=== PATIENT | female | born 1935 | race Caucasian/White ===

== ENCOUNTER 2017-06-09 14:54 | Inpatient (IN) | payer MEDICARE, MEDICAID ==
[~2017-06-09] VITALS: Ht 149.9 cm; Wt 95.6 kg
[2017-06-09] MEDS ORDERED: XALA2.5OS OU (15:20)
[2017-06-09] MEDS ORDERED: IPRA3AMP4 IH (15:20)
[2017-06-09] MEDS ORDERED: ATOR10TA84 PO (15:20)
[2017-06-09] MEDS ORDERED: RIVA20TA PO (15:20)
[2017-06-09] MEDS ORDERED: FAMO20 PO (15:20)
[2017-06-09] MEDS ORDERED: GABA-531 PO (15:20)
[2017-06-09] MEDS ORDERED: NITR50 PO (15:20)
[2017-06-09] MEDS ORDERED: AMLO-511 PO (15:20)
[2017-06-09] MEDS ORDERED: INSU100V SQ (15:20)
[2017-06-09] MEDS ORDERED: TRAZ-147 PO (15:20)
[2017-06-09] MEDS ORDERED: VALS160T2 PO (15:20)
[2017-06-09] MEDS ORDERED: CARV6 PO (15:20)
[2017-06-09 16:05] LABS: BASOPHILS % (AUTO) 0.1 % (0.0-2.0); EOSINOPHILS % (AUTO) 0.8 % (1.0-6.0); HEMATOCRIT 43.1 % (36-46); HEMOGLOBIN 14.6 g/dL (12.0-16.0); LYMPHOCYTES # (AUTO) 2.2 K/uL (1.0-4.8); LYMPHOCYTES % (AUTO) 13.7 % (22.0-44.0); MEAN CORPUSCULAR HEMOGLOBIN 30.5 pg (26.0-34.0); MEAN CORPUSCULAR HGB CONC 33.8 G/dL (31.0-37.0); MEAN CORPUSCULAR VOLUME 90 fL (80-100); MONOCYTES % (AUTO) 6.5 % (2.0-9.0); NEUTROPHILS # (AUTO) 12.5 K/uL (1.8-7.7); NEUTROPHILS % (AUTO) 78.9 % (40.0-70.0); PLATELET COUNT (AUTO) 137 K/uL (150-450); RED BLOOD CELL COUNT(AUTO) 4.78 MIL/uL (4.00-5.20); RED CELL DISTRIBUTION WIDTH 13.6 % (11.5-14.5); WHITE BLOOD COUNT (AUTO) 15.8 K/uL (4.5-11.0)
[2017-06-09 16:16] LABS: ANION GAP 8 mmol/L (8-16); CALCIUM, TOTAL 8.6 mg/dL (8.8-10.5); CARBON DIOXIDE 27 mmol/L (22-29); CHLORIDE 103 mmol/L (98-107); CREATININE 0.93 mg/dL (0.60-1.30); GLOMERULAR FILTR. RATE CALC 58 mL/min (>60); POTASSIUM 4.2 mmol/L (3.5-5.1); SODIUM SERUM 138 mmol/L (136-145); UREA NITROGEN, BLOOD 22 mg/dL (7-18)
[2017-06-09 16:18] LABS: INR 1.2 (0.9-1.1)
[2017-06-09 16:22] LABS: ALANINE AMINOTRANSFERASE 17 U/L (12-78); ALBUMIN 3.9 g/dL (3.4-5.0); ASPARTATE AMINOTRANSFERASE 16 U/L (15-37); BILIRUBIN,TOTAL 0.5 mg/dL (0.1-1.0); CREATINE KINASE, TOTAL 50 U/L (26-192); TOTAL PROTEIN, SERUM 7.2 g/dL (6.4-8.2)
[2017-06-09] MEDS ORDERED: ACETAMINOPHEN 325 MG TABLET PO ONE (16:30)
[2017-06-09 16:37] LABS: B-TYPE NATRIURETIC PEPTIDE 103 pg/mL (0-100)
[2017-06-09 18:27] LABS: GLUCOSE,POINT OF CARE 127 MG/DL (70-110)
[2017-06-09] MEDS ORDERED: ACETAMINOPHEN 325 MG TABLET PO PRN (18:30)
[2017-06-09] MEDS ORDERED: 0.9% SODIUM CHLORIDE 10 ML SYRINGE IVP PRN (18:30)
[2017-06-09 21:38] LABS: GLUCOSE,POINT OF CARE 149 MG/DL (70-110)
[2017-06-10] VITALS (7 sets, daily range): BP systolic 138–156; BP diastolic 65–108
[2017-06-10] MEDS ORDERED: FAMOTIDINE 20 MG TABLET PO SCH ×2 (00:30→09:00)
[2017-06-10] MEDS ORDERED: NITROGLYCERIN 0.4 MG SUBLINGUAL TABLET #25 SL PRN (00:30)
[2017-06-10] MEDS ORDERED: MORPHINE SULFATE 2 MG/ML SYRINGE IVP PRN (00:30)
[2017-06-10] MEDS ORDERED: NITROGLYCERIN 2% (1 GM=INCH) PACKET TP PRN (00:30)
[2017-06-10] MEDS ORDERED: ASPIRIN 81 MG CHEWABLE TABLET PO ONE (00:30)
[2017-06-10] MEDS ORDERED: RIVAROXABAN 20 MG TABLET PO SCH ×2 (01:00→18:00)
[2017-06-10] MEDS: OXYGEN THERAPY IH SCH ×3 (01:01→20:03)
[2017-06-10 05:53] LABS: BASOPHILS # (AUTO) 0.04 K/uL (0.00-0.20); BASOPHILS % (AUTO) 0.3 % (0.0-2.0); EOSINOPHILS # (AUTO) 0.21 K/uL (0.00-0.70); EOSINOPHILS % (AUTO) 1.55 % (1.0-6.0); HEMATOCRIT 44.2 % (36-46); HEMOGLOBIN 14.9 g/dL (12.0-16.0); LYMPHOCYTES # (AUTO) 1.6 K/uL (1.0-4.8); LYMPHOCYTES % (AUTO) 11.4 % (22.0-44.0); MEAN CORPUSCULAR HEMOGLOBIN 30.1 pg (26.0-34.0); MEAN CORPUSCULAR HGB CONC 33.8 G/dL (31.0-37.0); MEAN CORPUSCULAR VOLUME 89 fL (80-100); MONOCYTES # (AUTO) 0.8 K/uL (0.1-1.0); MONOCYTES % (AUTO) 5.5 % (2.0-9.0); NEUTROPHILS # (AUTO) 11.2 K/uL (1.8-7.7); NEUTROPHILS % (AUTO) 81.3 % (40.0-70.0); PLATELET COUNT (AUTO) 135 K/uL (150-450); RED BLOOD CELL COUNT(AUTO) 4.97 MIL/uL (4.00-5.20); RED CELL DISTRIBUTION WIDTH 13.3 % (11.5-14.5); WHITE BLOOD COUNT (AUTO) 13.8 K/uL (4.5-11.0)
[2017-06-10 06:11] LABS: ALANINE AMINOTRANSFERASE 15 U/L (12-78); ANION GAP 12 mmol/L (8-16); ASPARTATE AMINOTRANSFERASE 14 U/L (15-37); BILIRUBIN,TOTAL 0.7 mg/dL (0.1-1.0); CALCIUM, TOTAL 8.9 mg/dL (8.8-10.5); CARBON DIOXIDE 25 mmol/L (22-29); CHLORIDE 102 mmol/L (98-107); CREATININE 0.76 mg/dL (0.60-1.30); GLOMERULAR FILTR. RATE CALC > 60 mL/min (>60); POTASSIUM 4.3 mmol/L (3.5-5.1); SODIUM SERUM 139 mmol/L (136-145); TOTAL PROTEIN, SERUM 7.4 g/dL (6.4-8.2); UREA NITROGEN, BLOOD 22 mg/dL (7-18)
[2017-06-10] MEDS ORDERED: DEXTROSE 50%-WATER 25 GM/50 ML SYRINGE IVP PRN (07:45)
[2017-06-10] MEDS: ASPIRIN 81 MG CHEWABLE TABLET PO SCH (08:26)
[2017-06-10] MEDS: LATANOPROST 0.005% 2.5 ML OPHTHALMIC SOLUTION OU SCH (08:26)
[2017-06-10] MEDS: CARVEDILOL 6.25 MG TABLET PO SCH (08:26)
[2017-06-10] MEDS: DOCUSATE SODIUM 100 MG CAPSULE PO SCH (08:26)
[2017-06-10] MEDS: AmLODIPine BESYLATE 5 MG TABLET PO SCH (08:27)
[2017-06-10] MEDS: VALSARTAN 160 MG TABLET PO SCH (08:27)
[2017-06-10] MEDS: GABAPENTIN 300 MG CAPSULE PO SCH ×3 (08:27→20:03)
[2017-06-10] MEDS ORDERED: ASPIRIN 81 MG CHEWABLE TABLET PO SCH (09:00)
[2017-06-10] MEDS ORDERED: ATORVASTATIN CALCIUM 10 MG TABLET PO SCH ×2 (09:00)
[2017-06-10] MEDS ORDERED: NITROFURANTOIN/NITROFURAN MAC 100 MG CAPSULE [MACROBID] PO SCH (09:00)
[2017-06-10] MEDS: ACETAMINOPHEN 325 MG TABLET PO PRN ×2 (11:41→20:04)
[2017-06-10 12:43] LABS: GLUCOSE COMMENT 1 Received Meds; GLUCOSE,POINT OF CARE 192 MG/DL (70-110)
[2017-06-10] MEDS: INSULIN ASPART 100 UNITS/ML SQ PRN ×3 (13:32→20:21)
[2017-06-10] MEDS ORDERED: TRAZ150 PO (15:27)
[2017-06-10] MEDS ORDERED: GABA-533 PO (15:27)
[2017-06-10] MEDS ORDERED: ALBUTEROL SULFATE HFA 90 MCG/PUFF 8 GM INHALER IH PRN (15:30)
[2017-06-10] MEDS ORDERED: *NON-FORMULARY MED [ENTER DRUG, DOSE, FREQ IN COMMENTS] CLINICAL ONE ×2 (15:45)
[2017-06-10] MEDS: FLUOROMETHOLONE 0.1% 5 ML OPHTHALMIC SUSPENSION OS SCH ×2 (17:13→20:03)
[2017-06-10 19:38] LABS: GLUCOSE COMMENT 1 Received Meds; GLUCOSE,POINT OF CARE 141 MG/DL (70-110)
[2017-06-10] MEDS: OXYBUTYNIN CHLORIDE 5 MG ER TABLET PO SCH (20:03)
[2017-06-10] MEDS: DABIGATRAN ETEXILATE MESYLATE 150 MG CAPSULE PO SCH (20:03)
[2017-06-10] MEDS: TraZODone HCL 100 MG TABLET PO SCH (20:03)
[2017-06-10 21:23] LABS: ADD UA MICROSCOPIC NO; APPEARANCE,URINE CLEAR (CLEAR); GLUCOSE, URINE (UA) NEGATIVE (NEGATIVE); KETONES,URINE NEGATIVE (NEGATIVE); LEUKOCYTE ESTERASE ,URINE NEGATIVE (NEGATIVE); OCCULT BLOOD,URINE NEGATIVE (NEGATIVE); PROTEIN,URINE POS 1+ (NEGATIVE)
[2017-06-11 01:18] LABS: GLUCOSE COMMENT 1 Received Meds; GLUCOSE,POINT OF CARE 214 MG/DL (70-110)
[2017-06-11 01:18] LABS: GLUCOSE COMMENT 1 Received Meds; GLUCOSE,POINT OF CARE 268 MG/DL (70-110)
[2017-06-11 05:44] VITALS: BP 128/75
[2017-06-11 06:09] LABS: BASOPHILS % (AUTO) 0.1 % (0.0-2.0); EOSINOPHILS % (AUTO) 2.1 % (1.0-6.0); HEMATOCRIT 43.8 % (36-46); LYMPHOCYTES # (AUTO) 2.3 K/uL (1.0-4.8); LYMPHOCYTES % (AUTO) 17.8 % (22.0-44.0); MEAN CORPUSCULAR HEMOGLOBIN 30.6 pg (26.0-34.0); MEAN CORPUSCULAR HGB CONC 34.2 G/dL (31.0-37.0); MEAN CORPUSCULAR VOLUME 89 fL (80-100); MONOCYTES # (AUTO) 0.8 K/uL (0.1-1.0); MONOCYTES % (AUTO) 6.1 % (2.0-9.0); NEUTROPHILS # (AUTO) 9.4 K/uL (1.8-7.7); NEUTROPHILS % (AUTO) 73.9 % (40.0-70.0); PLATELET COUNT (AUTO) 144 K/uL (150-450); RED BLOOD CELL COUNT(AUTO) 4.89 MIL/uL (4.00-5.20); RED CELL DISTRIBUTION WIDTH 13.6 % (11.5-14.5); WHITE BLOOD COUNT (AUTO) 12.8 K/uL (4.5-11.0)
[2017-06-11] MEDS: INSULIN ASPART 100 UNITS/ML SQ PRN ×4 (06:19→20:14)
[2017-06-11 07:05] LABS: ALANINE AMINOTRANSFERASE 17 U/L (12-78); ALBUMIN 3.5 g/dL (3.4-5.0); ANION GAP 9 mmol/L (8-16); ASPARTATE AMINOTRANSFERASE 17 U/L (15-37); BILIRUBIN,TOTAL 1.1 mg/dL (0.1-1.0); CALCIUM, TOTAL 8.7 mg/dL (8.8-10.5); CARBON DIOXIDE 28 mmol/L (22-29); CHLORIDE 105 mmol/L (98-107); CHOL/HDL RATIO 3.4 (3.9-5.7); CREATININE 0.81 mg/dL (0.60-1.30); GLOMERULAR FILTR. RATE CALC > 60 mL/min (>60); POTASSIUM 3.8 mmol/L (3.5-5.1); SODIUM SERUM 142 mmol/L (136-145); TOTAL PROTEIN, SERUM 6.8 g/dL (6.4-8.2); UREA NITROGEN, BLOOD 20 mg/dL (7-18)
[2017-06-11 08:09] VITALS: BP 118/77
[2017-06-11] MEDS: FLUOROMETHOLONE 0.1% 5 ML OPHTHALMIC SUSPENSION OS SCH ×4 (08:18→20:08)
[2017-06-11] MEDS: OXYGEN THERAPY IH SCH ×2 (08:18→20:15)
[2017-06-11] MEDS: LATANOPROST 0.005% 2.5 ML OPHTHALMIC SOLUTION OU SCH (08:19)
[2017-06-11] MEDS: BUMETANIDE 1 MG TABLET PO SCH (08:19)
[2017-06-11] MEDS: ASPIRIN 81 MG CHEWABLE TABLET PO SCH (08:19)
[2017-06-11] MEDS: DOCUSATE SODIUM 100 MG CAPSULE PO SCH (08:20)
[2017-06-11] MEDS: AmLODIPine BESYLATE 5 MG TABLET PO SCH (08:20)
[2017-06-11] MEDS: ATORVASTATIN CALCIUM 20 MG TABLET PO SCH (08:20)
[2017-06-11] MEDS: GABAPENTIN 300 MG CAPSULE PO SCH ×3 (08:20→20:08)
[2017-06-11] MEDS: DABIGATRAN ETEXILATE MESYLATE 150 MG CAPSULE PO SCH ×2 (08:21→20:08)
[2017-06-11] MEDS: PANTOPRAZOLE SODIUM 40 MG DR TABLET PO SCH (08:21)
[2017-06-11] MEDS: CARVEDILOL 6.25 MG TABLET PO SCH (08:23)
[2017-06-11 08:33] LABS: GLUCOSE COMMENT 1 Received Meds; GLUCOSE,POINT OF CARE 164 MG/DL (70-110)
[2017-06-11] MEDS ORDERED: PANTOPRAZOLE SODIUM 40 MG DR TABLET PO SCH (09:00)
[2017-06-11] MEDS: VALSARTAN 160 MG TABLET PO SCH (09:52)
[2017-06-11 11:56] VITALS: BP 149/97
[2017-06-11] MEDS ORDERED: DENTURE ADHESIVE 68 GM CREAM DT PRN (12:30)
[2017-06-11 13:08] LABS: GLUCOSE COMMENT 1 Received Meds; GLUCOSE,POINT OF CARE 211 MG/DL (70-110)
[2017-06-11 16:28] VITALS: BP 129/73
[2017-06-11 19:54] VITALS: BP 139/74
[2017-06-11] MEDS: ACETAMINOPHEN 325 MG TABLET PO PRN (20:08)
[2017-06-11] MEDS: TraZODone HCL 100 MG TABLET PO SCH (20:08)
[2017-06-11] MEDS: OXYBUTYNIN CHLORIDE 5 MG ER TABLET PO SCH (20:08)
[2017-06-11 22:22] LABS: GLUCOSE,POINT OF CARE 257 MG/DL (70-110)
[2017-06-11 22:23] LABS: GLUCOSE COMMENT 1 Received Meds; GLUCOSE,POINT OF CARE 284 MG/DL (70-110)
[2017-06-11 23:42] VITALS: BP 146/96
[2017-06-12] VITALS (8 sets, daily range): BP systolic 118–170; BP diastolic 42–90
[2017-06-12 07:48] LABS: GLUCOSE COMMENT 1 FASTING; GLUCOSE,POINT OF CARE 224 MG/DL (70-110)
[2017-06-12] MEDS: FLUOROMETHOLONE 0.1% 5 ML OPHTHALMIC SUSPENSION OS SCH ×4 (07:53→20:37)
[2017-06-12] MEDS: LATANOPROST 0.005% 2.5 ML OPHTHALMIC SOLUTION OU SCH (07:57)
[2017-06-12] MEDS: OXYGEN THERAPY IH SCH ×2 (08:00→20:00)
[2017-06-12] MEDS ORDERED: ESTROGENS,CONJUGATED 0.625 MG/GM 30 GM VAG CREAM VG SCH (09:00)
[2017-06-12] MEDS: DABIGATRAN ETEXILATE MESYLATE 150 MG CAPSULE PO SCH (09:00)
[2017-06-12] MEDS: PANTOPRAZOLE SODIUM 40 MG DR TABLET PO SCH (09:00)
[2017-06-12] MEDS ORDERED: SESTAMIBI TC99M/UD ISOTOPE 1 EA INJ INJ ONE ×2 (09:20→13:05)
[2017-06-12] MEDS ORDERED: REGADENOSON 0.4 MG/5 ML PF SYRINGE IVP ONE ×2 (12:57→13:34)
[2017-06-12] MEDS ORDERED: AMINOPHYLLINE 25 MG/ML 10 ML VIAL IVP ONE ×4 (13:08→13:50)
[2017-06-12] MEDS: VALSARTAN 160 MG TABLET PO SCH (13:44)
[2017-06-12] MEDS: ATORVASTATIN CALCIUM 20 MG TABLET PO SCH (13:44)
[2017-06-12] MEDS: GABAPENTIN 300 MG CAPSULE PO SCH ×3 (13:44→20:33)
[2017-06-12] MEDS: CARVEDILOL 6.25 MG TABLET PO SCH (13:45)
[2017-06-12] MEDS: AmLODIPine BESYLATE 5 MG TABLET PO SCH (13:45)
[2017-06-12] MEDS: DOCUSATE SODIUM 100 MG CAPSULE PO SCH (13:45)
[2017-06-12] MEDS: ASPIRIN 81 MG CHEWABLE TABLET PO SCH (13:45)
[2017-06-12] MEDS: BUMETANIDE 1 MG TABLET PO SCH (13:47)
[2017-06-12] MEDS: INSULIN ASPART 100 UNITS/ML SQ PRN ×3 (13:58→20:36)
[2017-06-12] MEDS: HYDROCODONE/ACETAMINOPHEN 5-325 MG TABLET PO PRN (14:09)
[2017-06-12 19:23] LABS: GLUCOSE COMMENT 1 Received Meds; GLUCOSE,POINT OF CARE 268 MG/DL (70-110)
[2017-06-12 19:23] LABS: GLUCOSE COMMENT 1 Received Meds; GLUCOSE,POINT OF CARE 276 MG/DL (70-110)
[2017-06-12] MEDS: TraZODone HCL 100 MG TABLET PO SCH (20:32)
[2017-06-12] MEDS: OXYBUTYNIN CHLORIDE 5 MG ER TABLET PO SCH (20:33)
[2017-06-12] MEDS: INSULIN DETEMIR 100 UNITS/ML SQ SCH (20:34)
[2017-06-13] MEDS: ACETAMINOPHEN 325 MG TABLET PO PRN (01:21)
[2017-06-13 04:49] VITALS: BP 136/74
[2017-06-13 06:22] LABS: BASOPHILS % (AUTO) 0.2 % (0.0-2.0); EOSINOPHILS % (AUTO) 1.9 % (1.0-6.0); HEMATOCRIT 42.9 % (36-46); HEMOGLOBIN 14.7 g/dL (12.0-16.0); LYMPHOCYTES % (AUTO) 14.6 % (22.0-44.0); MEAN CORPUSCULAR HEMOGLOBIN 30.7 pg (26.0-34.0); MEAN CORPUSCULAR HGB CONC 34.3 G/dL (31.0-37.0); MEAN CORPUSCULAR VOLUME 89 fL (80-100); MONOCYTES # (AUTO) 0.9 K/uL (0.1-1.0); MONOCYTES % (AUTO) 6.4 % (2.0-9.0); NEUTROPHILS # (AUTO) 10.5 K/uL (1.8-7.7); NEUTROPHILS % (AUTO) 76.9 % (40.0-70.0); PLATELET COUNT (AUTO) 137 K/uL (150-450); RED CELL DISTRIBUTION WIDTH 13.4 % (11.5-14.5); WHITE BLOOD COUNT (AUTO) 13.7 K/uL (4.5-11.0)
[2017-06-13] MEDS: INSULIN ASPART 100 UNITS/ML SQ PRN ×2 (06:27→11:57)
[2017-06-13 06:59] LABS: ALANINE AMINOTRANSFERASE 17 U/L (12-78); ALBUMIN 3.5 g/dL (3.4-5.0); ANION GAP 7 mmol/L (8-16); ASPARTATE AMINOTRANSFERASE 13 U/L (15-37); BILIRUBIN,TOTAL 0.7 mg/dL (0.1-1.0); CALCIUM, TOTAL 8.7 mg/dL (8.8-10.5); CARBON DIOXIDE 28 mmol/L (22-29); CHLORIDE 104 mmol/L (98-107); CREATININE 0.86 mg/dL (0.60-1.30); GLOMERULAR FILTR. RATE CALC > 60 mL/min (>60); POTASSIUM 3.8 mmol/L (3.5-5.1); SODIUM SERUM 139 mmol/L (136-145); TOTAL PROTEIN, SERUM 6.7 g/dL (6.4-8.2); UREA NITROGEN, BLOOD 25 mg/dL (7-18)
[2017-06-13 07:18] VITALS: BP 139/76
[2017-06-13] MEDS: OXYGEN THERAPY IH SCH (08:00)
[2017-06-13] MEDS ORDERED: DABIGATRAN ETEXILATE MESYLATE 150 MG CAPSULE PO SCH (09:00)
[2017-06-13] MEDS: VALSARTAN 160 MG TABLET PO SCH (09:45)
[2017-06-13] MEDS: ASPIRIN 81 MG CHEWABLE TABLET PO SCH (09:45)
[2017-06-13] MEDS: GABAPENTIN 300 MG CAPSULE PO SCH (09:45)
[2017-06-13] MEDS: DOCUSATE SODIUM 100 MG CAPSULE PO SCH (09:46)
[2017-06-13] MEDS: CARVEDILOL 6.25 MG TABLET PO SCH (09:46)
[2017-06-13] MEDS: PANTOPRAZOLE SODIUM 40 MG DR TABLET PO SCH (09:46)
[2017-06-13] MEDS: ATORVASTATIN CALCIUM 20 MG TABLET PO SCH (09:48)
[2017-06-13] MEDS: FLUOROMETHOLONE 0.1% 5 ML OPHTHALMIC SUSPENSION OS SCH (09:49)
[2017-06-13] MEDS: LATANOPROST 0.005% 2.5 ML OPHTHALMIC SOLUTION OU SCH (09:49)
[2017-06-13] MEDS: BUMETANIDE 1 MG TABLET PO SCH (09:50)
[2017-06-13 09:57] LABS: GLUCOSE COMMENT 1 Received Meds; GLUCOSE,POINT OF CARE 373 MG/DL (70-110)
[2017-06-13 09:58] LABS: GLUCOSE COMMENT 1 Received Meds; GLUCOSE,POINT OF CARE 222 MG/DL (70-110)
[2017-06-13] MEDS: INSULIN DETEMIR 100 UNITS/ML SQ SCH (10:06)
[2017-06-13] MEDS: AmLODIPine BESYLATE 5 MG TABLET PO SCH (10:10)
[2017-06-13 11:51] VITALS: BP 142/75
[2017-06-13] MEDS: HYDROCODONE/ACETAMINOPHEN 5-325 MG TABLET PO PRN (11:54)
[2017-06-13 13:28] LABS: GLUCOSE COMMENT 1 Received Meds; GLUCOSE,POINT OF CARE 249 MG/DL (70-110)
[2017-06-13] MEDS ORDERED: DABI150 PO (14:12)
[2017-06-13] MEDS ORDERED: BUME1TAB12 PO (14:12)
[2017-06-13] MEDS ORDERED: INSU100V12 SQ (14:12)
[2017-06-13 15:43] VITALS: BP 120/77
[2017-06-13] MEDS ORDERED: REGADENOSON 0.4 MG/5 ML PF SYRINGE IVP ONE (16:04)
[2017-06-13] MEDS ORDERED: AMINOPHYLLINE 25 MG/ML 10 ML VIAL IV ONE (16:04)
[2017-06-14 20:28] LABS: GLUCOSE COMMENT 1 Received Meds; GLUCOSE,POINT OF CARE 252 MG/DL (70-110)
== END 2017-06-13 16:05 | disposition home or self-care (01) | DRG 311 ==
LOC: EMS 14:57 → 5N 20:20
PROVIDERS: ADMIT Internal Medicine; ATTEND Internal Medicine
DX: I20.0 Unstable angina (principal); I11.0 Hypertensive heart disease with heart failure; E11.21 Type 2 diabetes mellitus with diabetic nephropathy; I50.32 Chronic diastolic (congestive) heart failure; E11.40 Type 2 diabetes mellitus with diabetic neuropathy, unspecified; I45.10 Unspecified right bundle-branch block; R00.2 Palpitations; E78.5 Hyperlipidemia, unspecified; I48.2 Chronic atrial fibrillation; K21.9 Gastro-esophageal reflux disease without esophagitis; Z79.4 Long term (current) use of insulin; Z82.49 Family history of ischemic heart disease and other diseases of the circulatory system; Z95.5 Presence of coronary angioplasty implant and graft; Z95.1 Presence of aortocoronary bypass graft; Z87.440 Personal history of urinary (tract) infections; Z90.710 Acquired absence of both cervix and uterus; Z90.49 Acquired absence of other specified parts of digestive tract
CPT/HCPCS: 78452; 82962; 83735; 93005; 93017; 93306; 99285; A9500; J0280; J2785

== ENCOUNTER → 2017-07-17 | Outpatient (CLI) | payer MEDICAID, MEDICARE ==
[~2017-07-17] MED LIST: AMLO-511 PO; ATOR10TA84 PO; BUME1TAB12 PO; CARV6 PO; DABI150 PO; FAMO20 PO; GABA-533 PO; INSU100V SQ; INSU100V12 SQ; IPRA3AMP4 IH; TRAZ150 PO; VALS160T2 PO; XALA2.5OS OU
== END | disposition home or self-care (01) ==
LOC: RADPV 09:46
PROVIDERS: ATTEND Family Medicine
DX: R13.10 Dysphagia, unspecified (principal)
CPT/HCPCS: 74230